=== PATIENT | male | born 1985 | race Caucasian/White ===

== ENCOUNTER 2018-06-14 15:59 | Emergency (ER) | payer MEDICAID ==
[2018-06-14] MEDS ORDERED: IBUPROFEN 800 MG TAB PO ONE (16:24)
[2018-06-14] MEDS ORDERED: KETOROLAC 30 MG/1 ML SDV IVP ONE (16:26)
--- NOTE | 2018-06-14 16:30 | EDPHY ---
H & P Stated Complaint: HOOK and mouth pain for past month, hx of cracked tooth Time Seen by Provider: 06/14/18 16:17 HPI/ROS: CHIEF COMPLAINT: Headache HISTORY OF PRESENT ILLNESS: Patient is a 32-year-old man who comes to the emergency department complaining of a headache in the back of his head. It began about a month ago during intercourse. He states that it is been present ever since to some degree but has worsened each time he has had sexual intercourse. He has not had any focal weakness or deficits. He is worried that he may be bleeding. No fevers. No illness. No vision or hearing changes. He does have mild photophobia. He has taken baby aspirin and hallucinogenic mushrooms for pain. He states that this has helped to some degree. No trauma. Severity: Moderate Modifying factors: See above REVIEW OF SYSTEMS: Constitutional: denies: chills, fever, recent illness, recent injury EENTM: denies: blurred vision, double vision, nose congestion Respiratory: denies: cough, shortness of breath Cardiac: denies: chest pain, irregular heart rate, lightheadedness, palpitations Gastrointestinal/Abdominal: denies: abdominal pain, diarrhea, nausea, vomiting, blood streaked stools Genitourinary: denies: dysuria, frequency, hematuria, pain Musculoskeletal: denies: joint pain, muscle pain Skin: denies: lesions, rash, jaundice, bruising Neurological: See HPI, no numbness or paresthesias or weakness. Hematologic/Lymphatic: denies: blood clots, easy bleeding, easy bruising Immunologic/allergic: denies: HIV/AIDS, transplant 10 systems reviewed and negative except as noted EXAM: GENERAL: Well-appearing, well-nourished and in no acute distress. HEAD: Atraumatic, normocephalic. EYES: Pupils equal round and reactive to light, extraocular movements intact, sclera anicteric, conjunctiva are normal. ENT: TMs normal, nares patent, oropharynx clear without exudates. Moist mucous membranes. NECK: Normal range of motion, supple without lymphadenopathy or JVD. LUNGS: Breath sounds clear to auscultation bilaterally and equal. No wheezes rales or rhonchi. HEART: Regular rate and rhythm without murmurs, rubs or gallops. ABDOMEN: Soft, nontender, normoactive bowel sounds. No guarding, no rebound. No masses appreciated. BACK: No CVA tenderness, no spinal tenderness, step-offs or deformities EXTREMITIES: Normal range of motion, no pitting or edema. No clubbing or cyanosis. NEUROLOGICAL: Cranial nerves II through XII grossly intact. Normal speech, normal gait. 5/5 strength, normal movement in all extremities, normal sensation , normal reflexes PSYCH: Normal mood, normal affect. SKIN: Warm, dry, normal turgor, no visible rashes or lesions. Source: Patient Exam Limitations: No limitations - Personal History Current Tetanus Diphtheria and Acellular Pertussis (TDAP): Yes - Medical/Surgical History Hx Asthma: No Hx Chronic Respiratory Disease: No Hx Diabetes: No Hx Cardiac Disease: No Hx Renal Disease: No Hx Cirrhosis: No Hx Alcoholism: Yes Hx HIV/AIDS: No Hx Splenectomy or Spleen Trauma: No - Family History Significant Family History: No pertinent family hx - Social History Smoking Status: Light smoker Alcohol Use: None Constitutional: Initial Vital Signs Temperature (C) 37.1 C 06/14/18 16:06 Heart Rate 104 H 06/14/18 16:06 Respiratory Rate 14 06/14/18 16:06 Blood Pressure 117/81 H 06/14/18 16:06 O2 Sat (%) 93 06/14/18 16:06 O2 Delivery Mode Room Air Allergies/Adverse Reactions: No Known Allergies Allergy (Unverified 06/14/18 16:05) Home Medications: Medication Instructions Recorded Amoxicillin/Clavulanate Pot 875 mg PO BID #14 tab 06/14/18 [Augmentin 875Mg] Medical Decision Making - Diagnostics Imaging Results: Imaging Impressions Head CT 06/14/18 16:24 Impression: 1. No significant intracranial abnormality seen. 2. Nonspecific bilateral ethmoid and right maxillary sinus disease If symptoms worsen, additional imaging may be necessary. Findings discussed with Mervin Almanzar at 17:55 hour, 06/14/2018. Head CTA 06/14/18 16:[address]: [address] angiogram of the neck. 2. Normal CT angiogram of the [place], as detailed above. Note: All calculations were performed using NASCET criteria. Findings discussed with Mervin Almanzar at 17:55 hour, 06/14/2018. Neck CTA 06/14/18 16:[address]: [address] angiogram of the neck. 2. Normal CT angiogram of the [place], as detailed above. Note: All calculations were performed using NASCET criteria. Findings discussed with Mervin Almanzar at 17:55 hour, 06/14/2018. Imaging: Discussed imaging studies w/ at home independent call center agent Radiologist ED Course/Re-evaluation: I ordered a CT scan based on the patient's history with concern for dissection or hemorrhage. We discussed the CT results. The patient's headache is improved. He is much relieved. I will start him on Augmentin for sinusitis. He is happy with this and declines further workup or treatment at this time. We discussed indications for returning. Differential Diagnosis: Partial list of the Differential diagnosis considered include but were not limited to; sinusitis, dissection, hemorrhage and although unlikely based on the history and physical exam, I also considered CVA, infection, trauma. I discussed these differential diagnoses and the plan with the patient as well as the usual and expected course. The patient understands that the diagnosis is provisional and that in medicine we are not always correct and that further workup is often warranted. Usual and customary warnings were given. All of the patient's questions were answered. The patient was instructed to return to the emergency department should the symptoms at all worsen or return, otherwise to followup with the physician as we discussed. - Data Points Laboratory Results: Laboratory Results 06/14/18 16:40 06/14/18 16:40 06/14/18 06/14/18 16:40 16:40 WBC 9.25 10^3/uL 10^3/uL (3.80-9.50) RBC 4.83 10^6/uL 10^6/uL (4.40-6.38) Hgb 16.3 g/dL g/dL (13.7-17.5) Hct 47.5 % % (40.0-51.0) MCV 98.3 fL fL (81.5-99.8) MCH 33.7 pg pg (27.9-34.1) MCHC 34.3 g/dL g/dL (32.4-36.7) RDW 12.2 % % (11.5-15.2) Plt Count 209 10^3/uL 10^3/uL (150-400) MPV 9.8 fL fL (8.7-11.7) Neut % (Auto) 73.9 % % (39.3-74.2) Lymph % (Auto) 18.3 % % (15.0-45.0) [place] % (Auto) 6.7 % % (4.5-13.0) Eos % (Auto) 0.5 % L % (0.6-7.6) Baso % (Auto) 0.4 % % (0.3-1.7) Nucleat RBC Rel Count 0.0 % % (0.0-0.2) Absolute Neuts (auto) 6.83 10^3/uL H 10^3/uL (1.70-6.50) Absolute Lymphs (auto) 1.69 10^3/uL 10^3/uL (1.00-3.00) Absolute Monos (auto) 0.62 10^3/uL 10^3/uL (0.30-0.80) Absolute Eos (auto) 0.05 10^3/uL 10^3/uL (0.03-0.40) Absolute Basos (auto) 0.04 10^3/uL 10^3/uL (0.02-0.10) Absolute Nucleated RBC 0.00 10^3/uL 10^3/uL (0-0.01) Immature Gran % 0.2 % % (0.0-1.1) Immature Gran # 0.02 10^3/uL 10^3/uL (0.00-0.10) Sodium 139 mEq/L mEq/L (135-145) Potassium 5.2 mEq/L mEq/L (3.5-5.2) Chloride 104 mEq/L mEq/L (97-110) Carbon Dioxide 27 mEq/l mEq/l (22-31) Anion Gap 8 mEq/L mEq/L (6-14) BUN 13 mg/dL mg/dL (7-23) Creatinine 0.8 mg/dL mg/dL (0.7-1.3) Estimated GFR > 60 Glucose 81 mg/dL mg/dL (70-100) Calcium 9.4 mg/dL mg/dL (8.5-10.4) Medications Given: Discontinued Medications Amoxicillin/Clavulanate Potassium (Augmentin 875mg) 875 mg PO EDNOW ONE PRN Reason: Protocol Stop: 06/14/18 18:02 Last Admin: 06/14/18 18:06 Dose: 875 mg Ibuprofen (Motrin) 800 mg PO EDNOW ONE Stop: 06/14/18 16:25 Last Admin: 06/14/18 17:13 Dose: Not Given Ketorolac Tromethamine (Toradol) 30 mg IVP EDNOW ONE Stop: 06/14/18 16:27 Last Admin: 06/14/18 16:46 Dose: 30 mg Departure - Departure Disposition: Home, Routine, Self-Care Clinical Impression: Sinusitis Qualifiers: Sinusitis location: unspecified location Chronicity: chronic Qualified Code(s) : J32.9 - Chronic sinusitis, unspecified Condition: Fair Instructions: Sinusitis (ED) Referrals: NONE *PRIMARY CARE P,. [Primary Care Provider] - As per Instructions Prescriptions: Amoxicillin/Clavulanate Pot [Augmentin 875Mg] 875 mg PO BID #14 tab
[2018-06-14 16:57] LABS: PLATELET COUNT 209 10^3/uL (150-400)
[2018-06-14] MEDS ORDERED: IOPAMIDOL (ISOVUE 370) 100 ML BTL IV ONE (16:58)
[2018-06-14 17:50] VITALS: BP 140/70
[2018-06-14] MEDS ORDERED: AMOXICILLIN/CLAVULANATE POT 875/125 MG TAB PO ONE (18:01)
== END 2018-06-14 18:13 | disposition home or self-care (01) ==
DX: J32.9 Chronic sinusitis, unspecified (principal)
CPT/HCPCS: 96374; J1885; Q9967

== ENCOUNTER 2018-08-01 16:58 | Emergency (ER) | payer SELFPAY | END 2018-08-01 17:56 | disposition home or self-care (01) ==